=== PATIENT | male | born 1985 | race American Indian/Alaskan Native ===

== ENCOUNTER 2017-04-02 13:25 | Emergency (ER) | payer SELFPAY ==
[2017-04-02 16:06] VITALS: BP 115/80
[2017-04-02] MEDS ORDERED: TYLENOL PO ONE (16:07)
--- NOTE | 2017-04-02 16:21 | Emergency Department Report ---
Chief Complaint: Sore Throat Stated Complaint: THROAT SWOLLEN - HPI History of Present Illness: 32-year-old male presents with complaint of sore throat 2-3 days. Patient speaking in full sentences awake alert and oriented 3 nontoxic-appearing - ROS Review of Systems: Sore throat for 2 days - Exam Vital Signs: Vital Signs 04/02/17 16:02 Temperature 100.4 F H Pulse Rate 97 H Respiratory 16 Rate Blood Pressure 115/80 O2 Sat by Pulse 97 Oximetry Physical Exam: Visible tonsillar exudates bilaterally MSE screening note: Focused history and physical exam performed. Due to findings the following was ordered: Screening Assessment/Plan/Differential Dx: Strep throat versus tonsillitis 1- This initial assessment/diagnostic orders/clinical plan/ treatment(s) is/are subject to change based on pt's health status, clinical progression and re- assessment by fellow clinical providers in the ED. Further treatment and workup at subsequent clinical provers discretion. Patient/guardians urged not to elope from ED as their condition may be serious if not clinically assessed and managed. 2-Tylenol, rapid strep sent 3-patient may require antibiotic treatment ED Disposition for MSE Condition: Stable Referrals: PRIMARY CARE, [Primary Care Provider] - 3-5 Days
[2017-04-02] MEDS ORDERED: LIDOCAINE VISCOUS 2% ONE (19:15)
--- NOTE | 2017-04-02 19:17 | Emergency Department Report ---
ED ENT HPI - General Chief complaint: Sore Throat Stated complaint: THROAT SWOLLEN Source: patient Mode of arrival: Ambulatory Limitations: No Limitations - History of Present Illness Initial comments: This is a 32-year-old male nontoxic, well nourished in appearance, no acute signs of distress presents to the ED complaining of sore throat, fever, chills, and body aches 4 days. Patient describes sore throat as swallowing razor blades with level of 7 out of 10. He denies any chest pain, shortness of breath , nausea, vomiting, chest pain, shortness of breath, numbness or tingling. Patient denies any calf pain or tenderness. Denies recent travels, long car rides or recent hospital stays. Denies hemoptysis. Denies any allergies or past medical history. MD complaint: sore throat -: Gradual, days(s) (4) Severity: mild Severity scale (0 -10): 6 Quality: other (sensation of swallowing razor blades) Improves with: none Worsens with: swallowing Associated Symptoms: fever, pain with swallowing, sore throat. denies: cough, gum swelling, toothache, tinnitus, hearing loss, discharge from ear, rhinorrhea - Related Data Previous Rx's Medication Instructions Recorded Last Taken Type Amoxicillin/K Clav Tab [Augmentin 1 tab PO BID #14 tablet 07/14/14 Unknown Rx 875MG] Sulfamethoxazole/Trimethoprim 1 each PO BID #14 tablet 07/14/14 Unknown Rx [Bactrim Ds] oxyCODONE /ACETAMINOPHEN [Percocet 2 tab PO Q6H PRN #16 tablet 07/14/14 Unknown Rx 5/325 mg] Amoxicillin 500 mg PO BID #20 capsule 04/02/17 Unknown Rx Ibuprofen [Motrin 600 MG tab] 600 mg PO Q8H PRN #30 tablet 04/02/17 Unknown Rx Nystas/Diphen/Xyl Visc/Mylanta 30 ml MM Q4H PRN 10 Days 04/02/17 Unknown Rx [Magic Mouthwash] Allergies Allergy/AdvReac Type Severity Reaction Status Date / Time No Known Allergies Allergy Verified 04/02/17 16:02 ED Dental HPI - General Chief complaint: Sore Throat Stated complaint: THROAT SWOLLEN Source: patient Mode of arrival: Ambulatory Limitations: No Limitations - Related Data Previous Rx's Medication Instructions Recorded Last Taken Type Amoxicillin/K Clav Tab [Augmentin 1 tab PO BID #14 tablet 07/14/14 Unknown Rx 875MG] Sulfamethoxazole/Trimethoprim 1 each PO BID #14 tablet 07/14/14 Unknown Rx [Bactrim Ds] oxyCODONE /ACETAMINOPHEN [Percocet 2 tab PO Q6H PRN #16 tablet 07/14/14 Unknown Rx 5/325 mg] Amoxicillin 500 mg PO BID #20 capsule 04/02/17 Unknown Rx Ibuprofen [Motrin 600 MG tab] 600 mg PO Q8H PRN #30 tablet 04/02/17 Unknown Rx Nystas/Diphen/Xyl Visc/Mylanta 30 ml MM Q4H PRN 10 Days 04/02/17 Unknown Rx [Magic Mouthwash] Allergies Allergy/AdvReac Type Severity Reaction Status Date / Time No Known Allergies Allergy Verified 04/02/17 16:02 ED Review of Systems ROS: Stated complaint: THROAT SWOLLEN Other details as noted in HPI Constitutional: denies: chills, fever Eyes: denies: eye pain, eye discharge, vision change ENT: throat pain. denies: ear pain Respiratory: denies: cough, shortness of breath, wheezing Cardiovascular: denies: chest pain, palpitations Endocrine: no symptoms reported Gastrointestinal: denies: abdominal pain, nausea, diarrhea Genitourinary: denies: urgency, dysuria Musculoskeletal: denies: back pain, joint swelling, arthralgia Skin: denies: rash, lesions Neurological: denies: headache, weakness, paresthesias Psychiatric: denies: anxiety, depression Hematological/Lymphatic: denies: easy bleeding, easy bruising ED Past Medical Hx - Past Medical History Hx Congestive Heart Failure: No Hx Diabetes: No Hx Asthma: No Hx COPD: No - Surgical History Additional Surgical History: finger surgery - Social History Smoking Status: Current Every Day Smoker Substance Use Type: Alcohol - Medications Home Medications: Home Medications Medication Instructions Recorded Confirmed Last Taken Type Amoxicillin/K Clav Tab [Augmentin 1 tab PO BID #14 tablet 07/14/14 Unknown Rx 875MG] Sulfamethoxazole/Trimethoprim 1 each PO BID #14 tablet 07/14/14 Unknown Rx [Bactrim Ds] oxyCODONE /ACETAMINOPHEN [Percocet 2 tab PO Q6H PRN #16 tablet 07/14/14 Unknown Rx 5/325 mg] Amoxicillin 500 mg PO BID #20 capsule 04/02/17 Unknown Rx Ibuprofen [Motrin 600 MG tab] 600 mg PO Q8H PRN #30 tablet 04/02/17 Unknown Rx Nystas/Diphen/Xyl Visc/Mylanta 30 ml MM Q4H PRN 10 Days 04/02/17 Unknown Rx [Magic Mouthwash] ED Physical Exam - General Limitations: No Limitations General appearance: alert, in no apparent distress - Head Head exam: Present: atraumatic, normocephalic, normal inspection - Eye Eye exam: Present: normal appearance, PERRL, EOMI. Absent: scleral icterus, conjunctival injection, nystagmus, periorbital swelling, periorbital tenderness Pupils: Present: normal accommodation - ENT ENT exam: Present: mucous membranes moist, TM's normal bilaterally, normal external ear exam - Expanded ENT Exam Expanded Ear exam: Present: normal external inspection Mouth exam: Present: normal external inspection, tongue normal. Absent: drooling, trismus, muffled voice, tongue elevation, laceration Teeth exam: Present: normal inspection Throat exam: Positive: tonsillar erythema, tonsillomegaly (2+), tonsillar exudate, other (no facial swelling. No abscess or swelling with tonsillar.). Negative: R peritonsillar mass, L peritonsillar mass - Neck Neck exam: Present: normal inspection, full ROM. Absent: tenderness, meningismus, lymphadenopathy, thyromegaly - Respiratory Respiratory exam: Present: normal lung sounds bilaterally. Absent: respiratory distress, wheezes, rales, rhonchi, stridor, chest wall tenderness, accessory muscle use, decreased breath sounds, prolonged expiratory - Cardiovascular Cardiovascular Exam: Present: regular rate, normal rhythm, normal heart sounds. Absent: systolic murmur, diastolic murmur, rubs, gallop - GI/Abdominal GI/Abdominal exam: Present: soft, normal bowel sounds - Rectal Rectal exam: Present: deferred - Extremities Exam Extremities exam: Present: normal inspection, full ROM, normal capillary refill. Absent: tenderness, pedal edema, joint swelling, calf tenderness - Back Exam Back exam: Present: normal inspection, full ROM. Absent: tenderness, CVA tenderness (R), CVA tenderness (L), muscle spasm, paraspinal tenderness, vertebral tenderness, rash noted - Neurological Exam Neurological exam: Present: alert, oriented X3, CN II-XII intact, normal gait, reflexes normal - Psychiatric Psychiatric exam: Present: normal affect, normal mood - Skin Skin exam: Present: warm, dry, intact, normal color. Absent: rash ED Course Vital Signs 04/02/17 16:02 Temperature 100.4 F H Pulse Rate 97 H Respiratory 16 Rate Blood Pressure 115/80 O2 Sat by Pulse 97 Oximetry - Reevaluation(s) Reevaluation #1: 04/02/17 19:18 patient is speaking in full sentences with no signs of distress. Critical care attestation.: If time is entered above; I have spent that time in minutes in the direct care of this critically ill patient, excluding procedure time. ED Disposition Clinical Impression: Strep throat Disposition: - TO HOME OR SELFCARE Is pt being admited?: No Does the pt Need Aspirin: No Condition: Stable Instructions: Strep Throat (ED), Tonsillitis (ED), Amoxicillin (By mouth), Ibuprofen (By mouth) Additional Instructions: follow-up with a primary care doctor in 3-5 days or if symptoms worsen and continue return to emergency room as soon as possible possible. Continue taking ibuprofen or Tylenol during fever episode. Strep throat is contagious. Prescriptions: Amoxicillin 500 mg PO BID #20 capsule Ibuprofen [Motrin 600 MG tab] 600 mg PO Q8H PRN #30 tablet PRN Reason: Pain Nystas/Diphen/Xyl Visc/Mylanta [Magic Mouthwash] 30 ml MM Q4H PRN 10 Days PRN Reason: Sore Throat Referrals: PRIMARY CAREMD [Primary Care Provider] - 3-5 Days ASIA ARMSTRONG MD [Staff Physician] - 3-5 Days [facility] [Outside] - 3-5 Days [facility] [Outside] - 3-5 Days Forms: Work/School Release Form(ED)
== END 2017-04-02 19:32 | disposition home or self-care (01) ==
LOC: ED 13:25
DX: J02.0 Streptococcal pharyngitis (principal); F17.200 Nicotine dependence, unspecified, uncomplicated
CPT/HCPCS: 87430; 93005; 93010